=== PATIENT | female | born 1945 | race Caucasian/White ===

== ENCOUNTER → 2016-04-07 | Outpatient (CLI) | payer MEDICARE, OTHER | LOC: RAD 10:46 | PROVIDERS: ATTEND Internal Medicine Hematology & Oncology | DX: C50.511 Malignant neoplasm of lower-outer quadrant of right female breast (principal) | CPT/HCPCS: 76642; G0204 ==

== ENCOUNTER 2016-04-21 09:30 | Outpatient (RCR) | payer MEDICARE, OTHER | END 2016-04-22 | disposition home or self-care (01) | LOC: CR 09:30 | PROVIDERS: ATTEND Family Medicine | DX: I50.22 Chronic systolic (congestive) heart failure (principal) | CPT/HCPCS: 93798 ==

== ENCOUNTER 2016-05-16 09:30 | Outpatient (RCR) | payer MEDICARE, OTHER | END 2016-05-16 12:00 | disposition home or self-care (01) | LOC: CR 09:30 | PROVIDERS: ATTEND Family Medicine | DX: I50.22 Chronic systolic (congestive) heart failure (principal) | CPT/HCPCS: 93798 ==